=== PATIENT | male | born 1950 | race Caucasian/White ===

== ENCOUNTER 2016-09-30 08:49 | Emergency (ER) | payer BC, OTHER ==
[~2016-09-30] VITALS: Ht 180.3 cm; Wt 108.9 kg
[2016-09-30 08:55] VITALS: BP 153/88; PULSE 62; RESP 16; TEMP 98.2; O2SAT 99
--- NOTE | 2016-09-30 08:59 | NUR ---
AMBULATED TO BED 5
--- NOTE | 2016-09-30 09:00 | NUR ---
ER at bedside examining patient.
--- NOTE | 2016-09-30 09:05 | NUR ---
pt presents to ED c/o RLQ abd pain x 2 days w/diarrhea.Pt denies n/v.Pt h/o HTN. No acute distress noted.
[2016-09-30] MEDS ORDERED: KETOROLAC TROMETHAMINE 30 MG VIAL IVP ONE (09:15)
[2016-09-30] MEDS ORDERED: ONDANSETRON HCL 4 MG/2 ML VIAL IVP ONE (09:15)
--- NOTE | 2016-09-30 09:15 | NUR ---
# 20 gauge angiocath placed to rh. Use of asceptic technique. Opsite placed over site. Blood return noted. Blood for lab drawn from site. Flushed with 10 cc of normal saline. No evidence of infiltration noted. Patient tolerated well.
[2016-09-30 09:29] LABS: EOSINOPHILS # (AUTO) 0.3 K/uL (0.0-0.4); EOSINOPHILS % (AUTO) 1.6 % (0.0-4.0); WHITE BLOOD COUNT (AUTO) 15.7 K/uL (4.8-10.8)
[2016-09-30 09:37] LABS: CALCIUM 8.8 mg/dL (8.4-11.0); CREATININE 1.14 mg/dL (0.55-1.30); POTASSIUM 4.4 mmol/L (3.5-5.1)
[2016-09-30 09:39] LABS: BASOPHILS # (AUTO) 0.1 K/uL (0.0-0.2); BASOPHILS % (AUTO) 0.8 % (0.0-2.0); HEMATOCRIT 48.5 % (36-54); HEMOGLOBIN 16.1 g/dL (14.0-18.0); LYMPHOCYTES # (AUTO) 1.5 K/uL (1.0-5.5); LYMPHOCYTES % (AUTO) 9.4 % (20.5-51.5); MEAN CORPUSCULAR HEMOGLOBIN 29 pg (27-31); MEAN CORPUSCULAR HGB CONC 33 % (32-36); MEAN CORPUSCULAR VOLUME 87 fL (79.0-98.0); MONOCYTES # (AUTO) 1.4 K/uL (0.0-1.0); MONOCYTES % (AUTO) 9.1 % (1.7-9.3); NEUTROPHILS # (AUTO) 12.4 K/uL (1.8-7.7); NEUTROPHILS % (AUTO) 79.1 % (40.0-70.0); PLATELET COUNT (AUTO) 175 K/uL (130-430); RED BLOOD CELL COUNT(AUTO) 5.56 MIL/uL (4.2-6.2); RED CELL DISTRIBUTION WIDTH 12.4 % (9.0-15.0)
[2016-09-30 09:40] LABS: INR 1.1 (0.80-1.20); PROTHROMBIN TIME 12.2 SECS (9.5-12.5)
[2016-09-30 09:41] LABS: TOTAL BILIRUBIN 2.9 mg/dL (0.0-1.0); TOTAL PROTEIN, SERUM 7.2 g/dL (6.4-8.3)
[2016-09-30] MEDS ORDERED: NACL 0.9% 1,000 ML IV ONE (09:45)
--- NOTE | 2016-09-30 09:50 | NUR ---
Pt tolerated medication well.
[2016-09-30] MEDS ORDERED: CIPROFLOXACIN LACT 400 MG/D5W 200 ML IV ONE (10:00)
[2016-09-30] MEDS ORDERED: cefTRIAXone 1 GM IVPB PREMIX 50 ML IV ONE (10:00)
[2016-09-30] MEDS ORDERED: metroNIDAZOLE 500 mg/NS 100 ML IV ONE ×3 (10:00→10:15)
--- NOTE | 2016-09-30 10:45 | NUR ---
2nd iv established for med administration prior to pt d/c. 20G LH. Pt tolerated well.
--- NOTE | 2016-09-30 11:10 | NUR ---
All meds started. Continuing to monitor.
[2016-09-30 12:10] VITALS: BP 148/82; PULSE 65; RESP 16; TEMP 98; O2SAT 99
--- NOTE | 2016-09-30 12:12 | NUR ---
Patient given written and verbal discharge instructions and verbalizes understanding. ER MD discussed with patient the results and treatment provided. Given copies of tests performed in ER. Patient in stable condition. ID arm band removed. IV catheter removed intact and dressing applied, no active bleeding. Rx of Cipro,Flagyl,motrin given. Patient educated on pain management and to follow up with PMD. Pain Scale 0. Opportunity for questions provided and answered.
== END 2016-09-30 12:10 | disposition home or self-care (01) ==
LOC: SED 08:49
DX: K57.32 Diverticulitis of large intestine without perforation or abscess without bleeding (principal); I10 Essential (primary) hypertension; Z88.0 Allergy status to penicillin
CPT/HCPCS: 36415; 74176; 80053; 82150; 83605; 83690; 85025; 85610; 85730; 87040; 96361; 96365; 96367; 96368; 96375; 99285; J0696; J0744; J1885; J2405; J3490; J7030

== ENCOUNTER 2021-05-27 10:55 | Observation (INO) | payer BC, OTHER ==
[~2021-05-27] VITALS: Ht 180.3 cm; Wt 108.0 kg
[2021-05-27 11:00] VITALS: BP_SYST 119
--- NOTE | 2021-05-27 11:00 | NUR ---
Patient to ER bed 2 to gown for evaluation. Side rails up. Report given to BILL
--- NOTE | 2021-05-27 11:20 | NUR ---
DR RING IN TO ASSESS
[2021-05-27] MEDS ORDERED: ASPIRIN 81 MG TAB.CHEW PO ONE (11:30)
[2021-05-27] MEDS ORDERED: NITROGLYCERIN 1 INCH (GM) OINT. TP ONE (11:45)
[2021-05-27] MEDS ORDERED: ACETAMINOPHEN 650 MG SUPP.RECT RC ONE (11:45)
[2021-05-27 11:49] LABS: BASOPHILS # (AUTO) 0.1 K/uL (0.0-0.2); BASOPHILS % (AUTO) 0.7 % (0.0-2.0); EOSINOPHILS # (AUTO) 0.3 K/uL (0.0-0.4); EOSINOPHILS % (AUTO) 3.9 % (0.0-4.0); HEMATOCRIT 41.2 % (36-54); HEMOGLOBIN 14.4 g/dL (14.0-18.0); LYMPHOCYTES # (AUTO) 1.2 K/uL (1.0-5.5); MEAN CORPUSCULAR HEMOGLOBIN 31 pg (27-31); MEAN CORPUSCULAR HGB CONC 35 % (32-36); MEAN CORPUSCULAR VOLUME 87 fL (79.0-98.0); MONOCYTES # (AUTO) 1.1 K/uL (0.0-1.0); MONOCYTES % (AUTO) 13.4 % (1.7-9.3); NEUTROPHILS # (AUTO) 5.3 K/uL (1.8-7.7); PLATELET COUNT (AUTO) 206 K/uL (130-430); RED BLOOD CELL COUNT(AUTO) 4.71 MIL/uL (4.2-6.2); RED CELL DISTRIBUTION WIDTH 14.4 % (9.0-15.0); WHITE BLOOD COUNT (AUTO) 7.9 K/uL (4.8-10.8)
[2021-05-27 12:05] LABS: CALCIUM 8.9 mg/dL (8.4-11.0); CREATININE 1.11 mg/dL (0.55-1.30); POTASSIUM 3.7 mmol/L (3.5-5.1)
[2021-05-27 12:08] LABS: INR 1.3 (0.80-1.20); PROTHROMBIN TIME 13.7 SECS (9.5-12.5)
[2021-05-27] MEDS ORDERED: ACETAMINOPHEN 650 MG/20.3 ML UDC PO ONE (12:15)
[2021-05-27 12:21] LABS: ALBUMIN 3.7 g/dL (3.4-4.8)
--- NOTE | 2021-05-27 12:30 | NUR ---
CALM, ALERT, SB ON MONITOR, RESP UNLABORED, SKIN WARM AND DRY. COMMUNICATES CLEARLY IN FULL COMPLETE SENTENCES
--- NOTE | 2021-05-27 13:41 | NUR ---
Dr. Rogel at bedside to assess.
[2021-05-27] MEDS ORDERED: ACETAMINOPHEN 325 MG TABLET PO PRN (13:45)
[2021-05-27] MEDS ORDERED: LORazepam 2 MG/ML VIAL IVP PRN (13:45)
[2021-05-27] MEDS ORDERED: HYDROcodone/ACETAMIN 5-325 MG TAB (NORCO/ VICODIN) PO PRN (13:45)
[2021-05-27] MEDS ORDERED: ONDANSETRON HCL 4 MG/2 ML VIAL IVP PRN (13:45)
[2021-05-27] MEDS ORDERED: HYDROcodone/ACETAMIN 10-325 MG TAB PO PRN (13:45)
[2021-05-27] MEDS: NORMAL SALINE 5 ML DISP.SYRIN IVF SCH ×2 (14:00→21:43)
--- NOTE | 2021-05-27 15:00 | NUR ---
SITTING UP TALKING WITH , NO DISTRESS, SB ON MONITOR NO ECTOPY, SKIN WARM AND DRY.
[2021-05-27 15:31] LABS: THYROID STIMULATING HORMONE 1.38 uIu/mL (0.36-3.74)
--- NOTE | 2021-05-27 16:52 | NUR ---
Patient will be admitted to care of [facility]. Admitted to TELE unit. Will go to room 103. Belongings list completed. Complete and up to date summary report printed. SBAR report to be given at bedside with opportunity for questions.
--- NOTE | 2021-05-27 17:15 | NUR ---
ADMISSION NOTE Received patient from ER via gurney. Patient admitted with diagnosis of ELEVATED TROPONIN. Patient is awake, alert, oriented X . Patient oriented to hospital room, call light, toileting, pain management and safety-teach back done. Patient informed that will be nurse and that their room number is . Personal belongings checked and Belongings List documented. Call light within reach.
--- NOTE | 2021-05-27 17:16 | NUR ---
CONSULTATION PAGED REASON FOR CONSULTATION ELEVATED TROPONIN WAS CONSULT CALED?Y PERSON WHO WAS NOTIFIED:MARISELA CONSULTING PHYSICIAN:FELIX GOODRICH PRINCIPAL STRATEGIST SPECIALTY:CARDIO PRINCIPAL STRATEGIST PHONE NUMBER:[phone] REQUESTING PHYSICIAN:SHELTON COLE
[2021-05-27 18:00] VITALS: BP_SYST 140
[2021-05-27] MEDS ORDERED: CARV6.2554 PO (18:03)
[2021-05-27] MEDS ORDERED: HYDR25TA4 PO (18:03)
[2021-05-27] MEDS ORDERED: RIVA20TA PO (18:03)
[2021-05-27] MEDS ORDERED: LOSA100T23 PO (18:03)
[2021-05-27] MEDS ORDERED: ROSU10TA2 PO (18:03)
--- NOTE | 2021-05-27 18:20 | NUR ---
CLOSING NOTES: PATIENT IS AWAKE LAYING DOWN IN BED. TOLERATED OXYGEN ON ROOM AIR WITH NO DISTRESS NOTED. IV LINE PATENT AND INTACT WITH NO INFILTRATION NOTED. PATIENT STABLE AT THIS TIME. SAFETY, FALL, AND ASPIRATION PRECAUTIONS REMAINED IN PLACED. BED LOCKED IN LOWEST POSITION AND CALL LIGHT IN REACH. WILL ENDORSE PATIENT CARE TO ONCOMING PLASTICS AND COMPOSITES INSPECTOR NURSE.
[2021-05-27 20:01] VITALS: BP_SYST 128
[2021-05-27] MEDS ORDERED: traZODone HCL 50 MG TABLET (DESYREL) PO PRN (22:30)
[2021-05-27 23:24] VITALS: BP_SYST 145
--- NOTE | 2021-05-28 00:05 | NUR ---
Paged Dr Malloy frame builder for elevated troponin, patient denies any chest pain , telemetry NSR
[2021-05-28 06:19] LABS: EOSINOPHILS # (AUTO) 0.3 K/uL (0.0-0.4); MEAN CORPUSCULAR HEMOGLOBIN 31 pg (27-31); MEAN CORPUSCULAR HGB CONC 35 % (32-36); MEAN CORPUSCULAR VOLUME 87 fL (79.0-98.0); MONOCYTES # (AUTO) 0.9 K/uL (0.0-1.0)
[2021-05-28] MEDS: NORMAL SALINE 5 ML DISP.SYRIN IVF SCH (06:31)
--- NOTE | 2021-05-28 07:35 | NUR ---
OPENING NOTES: RECEIVED PATIENT FROM ADVERTISING DISPATCH CLERKS SUPERVISOR NURSE. PATIENT IS AWAKE LAYING DOWN IN BED. TOLERATED OXYGEN ON ROOM AIR WITH NO DISTRESS NOTED. IV LINE PATENT AND INTACT WITH NO INFILTRATION NOTED. DENIES ANY PAIN AT THE MOMENT. PATIENT STABLE AT THIS TIME. SAFETY, FALL, AND ASPIRATION PRECAUTIONS ARE IN PLACE. BED LOCKED IN LOWEST POSITION AND CALL LIGHT IN REACH. WILL CONTINUE TO MONITOR PATIENT FOR ANY CHANGES.
[2021-05-28 08:00] VITALS: BP_SYST 159
[2021-05-28 08:19] LABS: BASOPHILS % (AUTO) 0.4 % (0.0-2.0); EOSINOPHILS % (AUTO) 3.1 % (0.0-4.0); HEMOGLOBIN 13.7 g/dL (14.0-18.0); LYMPHOCYTES % (AUTO) 9.8 % (20.5-51.5); MONOCYTES % (AUTO) 9.5 % (1.7-9.3); NEUTROPHILS # (AUTO) 7.5 K/uL (1.8-7.7); NEUTROPHILS % (AUTO) 77.2 % (40.0-70.0); PLATELET COUNT (AUTO) 182 K/uL (130-430); RED BLOOD CELL COUNT(AUTO) 4.49 MIL/uL (4.2-6.2); RED CELL DISTRIBUTION WIDTH 14.5 % (9.0-15.0); WHITE BLOOD COUNT (AUTO) 9.7 K/uL (4.8-10.8)
[2021-05-28 08:48] LABS: ALBUMIN 3.9 g/dL (3.4-4.8); CALCIUM 9.1 mg/dL (8.4-11.0); CREATININE 0.99 mg/dL (0.55-1.30); PHOSPHORUS 2.6 mg/dL (2.7-4.5); POTASSIUM 3.7 mmol/L (3.5-5.1); TOTAL BILIRUBIN 1.4 mg/dL (0.0-1.0)
[2021-05-28] MEDS ORDERED: LOSARTAN POTASSIUM 50 MG TABLET (COZAAR) PO SCH (09:00)
[2021-05-28] MEDS ORDERED: RIVAROXABAN 10 MG TABLET PO SCH (09:00)
[2021-05-28] MEDS ORDERED: HYDROCHLOROTHIAZIDE 25 MG TABLET (HCTZ) PO SCH (09:00)
[2021-05-28] MEDS ORDERED: CARVEDILOL 6.25 MG TABLET (COREG) PO SCH (09:00)
[2021-05-28] MEDS ORDERED: LIP20 PO (09:29)
--- NOTE | 2021-05-28 10:28 | NUR ---
PATIENT IS CLEARED BY SUPERVISOR MODERN LANGUAGES AND OKAYED TO GO HOME.
[2021-05-28 12:00] VITALS: BP_SYST 141
[2021-05-28 12:37] VITALS: BP_SYST 141
--- NOTE | 2021-05-28 13:10 | NUR ---
IV ADMINISTRATION END TIME (Observation Patients ONLY): IV infusion of started at and ended at . PATIENT HAS NO IV FLUIDS INFUSED DURING STAY.
--- NOTE | 2021-05-28 13:27 | NUR ---
D/C Patient Patient given medication reconciliation form and D/C instructions. Exit Care provided. Patient verbalized understanding. MD discussed with patient the results and treatment provided. Ambulatory with steady gait for discharge to home. Patient in stable condition, ID band removed. IV catheter removed, intact and dressing applied, no active bleeding. Rx of ATORVASTATIN given. Patient educated on pain management. All belongings sent with patient.
[2021-05-28] MEDS ORDERED: ATORVASTATIN 20 MG TABLET PO SCH (21:00)
--- NOTE | 2021-05-29 10:06 | NUR ---
Disposition o1
== END 2021-05-28 13:10 | disposition home or self-care (01) ==
LOC: SED 10:55 → STU 13:39
PROVIDERS: ADMIT Preventive Medicine Preventive Medicine/Occupational Environmental Medicine; ATTEND Preventive Medicine Preventive Medicine/Occupational Environmental Medicine
DX: I48.0 Paroxysmal atrial fibrillation (principal); I48.20 Chronic atrial fibrillation, unspecified; I10 Essential (primary) hypertension; I5A Non-ischemic myocardial injury (non-traumatic); E78.5 Hyperlipidemia, unspecified; E66.9 Obesity, unspecified; Z68.33 Body mass index [BMI] 33.0-33.9, adult; Z87.891 Personal history of nicotine dependence; Z88.0 Allergy status to penicillin; Z79.899 Other long term (current) drug therapy
CPT/HCPCS: 36415 ×2; 71045; 80053 ×2; 80061; 83735; 83880; 84100; 84443; 84484; 85025 ×2; 85610; 85730; 87040; 93005 ×2; 93306; 99285; G0378 ×2; 99291

== ENCOUNTER 2023-01-07 09:34 | Inpatient (IN) | payer BC, OTHER ==
[~2023-01-07] VITALS: Ht 177.8 cm; Wt 88.5 kg
[~2023-01-07 09:34] MED LIST: CARV6.2554 PO; HYDR25TA4 PO; LIP20 PO; LOSA100T23 PO; RIVA20TA PO
[2023-01-07 09:35] VITALS: BP_SYST 118
[2023-01-07 10:54] LABS: BASOPHILS # (AUTO) 0.1 K/uL (0.0-0.2); BASOPHILS % (AUTO) 0.8 % (0.0-2.0); EOSINOPHILS # (AUTO) 0.3 K/uL (0.0-0.4); EOSINOPHILS % (AUTO) 4.9 % (0.0-4.0); HEMATOCRIT 42.6 % (36-54); HEMOGLOBIN 14.7 g/dL (14.0-18.0); LYMPHOCYTES # (AUTO) 0.9 K/uL (1.0-5.5); LYMPHOCYTES % (AUTO) 14.6 % (20.5-51.5); MEAN CORPUSCULAR HEMOGLOBIN 30 pg (27-31); MEAN CORPUSCULAR HGB CONC 35 % (32-36); MEAN CORPUSCULAR VOLUME 88 fL (79.0-98.0); MONOCYTES # (AUTO) 0.8 K/uL (0.0-1.0); MONOCYTES % (AUTO) 13.3 % (1.7-9.3); NEUTROPHILS # (AUTO) 4.2 K/uL (1.8-7.7); NEUTROPHILS % (AUTO) 66.4 % (40.0-70.0); PLATELET COUNT (AUTO) 189 K/uL (130-430); RED BLOOD CELL COUNT(AUTO) 4.87 MIL/uL (4.2-6.2); RED CELL DISTRIBUTION WIDTH 12.9 % (9.0-15.0); WHITE BLOOD COUNT (AUTO) 6.3 K/uL (4.8-10.8)
[2023-01-07 11:14] LABS: ANION GAP 6 (5-15); CALCIUM 9.1 mg/dL (8.4-11.0); CHLORIDE 104 mmol/L (98-107); CREATININE 0.88 mg/dL (0.55-1.30); GLUCOSE 111 mg/dL (70-99); UREA NITROGEN, BLOOD 28 mg/dL (8-21)
[2023-01-07 11:19] LABS: ALANINE AMINOTRANSFERASE 12 U/L (12-78); ALBUMIN 3.8 g/dL (3.4-4.8); ASPARTATE AMINOTRANSFERASE 20 U/L (10-37); TOTAL BILIRUBIN 0.9 mg/dL (0.0-1.0)
[2023-01-07] MEDS ORDERED: NACL 0.9% 1,000 ML IV ONE (11:30)
[2023-01-07] MEDS ORDERED: dilTIAZem HCL IVP 5 MG/ML VIAL IVP ONE ×2 (12:15→13:15)
[2023-01-07] MEDS ORDERED: HYDROcodone/ACETAMIN 10-325 MG TAB PO PRN (14:15)
[2023-01-07] MEDS ORDERED: MORPHINE 2 MG/ML INJ. SYRINGE IVP PRN (14:15)
[2023-01-07] MEDS ORDERED: ONDANSETRON HCL 4 MG/2 ML VIAL IVP PRN (14:15)
[2023-01-07] MEDS ORDERED: DIGOXIN 0.5 MG/2 ML AMP IVP ONE ×2 (14:30→20:30)
[2023-01-07] MEDS ORDERED: ROSU10TA2 PO (14:30)
[2023-01-07] MEDS ORDERED: AMLO2.5T2 PO (14:30)
[2023-01-07] MEDS ORDERED: NITROGLYCERIN 0.4 MG TAB.SUBL SL PRN ×2 (15:00)
[2023-01-07 15:12] VITALS: BP_SYST 101
[2023-01-07 16:00] VITALS: BP_SYST 134
[2023-01-07 16:51] LABS: THYROID STIMULATING HORMONE < 0.01 uIu/mL (0.34-4.82)
[2023-01-07 19:00] VITALS: BP_SYST 115
[2023-01-07 20:00] VITALS: BP_SYST 115
[2023-01-08] MEDS ORDERED: DIGOXIN 0.5 MG/2 ML AMP IVP ONE (02:30)
[2023-01-08 07:10] LABS: INR 1.1 (0.80-1.20); PROTHROMBIN TIME 11.5 SECS (9.5-12.5)
[2023-01-08 07:11] LABS: BASOPHILS % (AUTO) 0.5 % (0.0-2.0); EOSINOPHILS # (AUTO) 0.2 K/uL (0.0-0.4); EOSINOPHILS % (AUTO) 2.8 % (0.0-4.0); HEMATOCRIT 43.8 % (36-54); HEMOGLOBIN 15.2 g/dL (14.0-18.0); LYMPHOCYTES # (AUTO) 1.4 K/uL (1.0-5.5); LYMPHOCYTES % (AUTO) 17.3 % (20.5-51.5); MEAN CORPUSCULAR HEMOGLOBIN 30 pg (27-31); MEAN CORPUSCULAR HGB CONC 35 % (32-36); MEAN CORPUSCULAR VOLUME 88 fL (79.0-98.0); MONOCYTES % (AUTO) 11.9 % (1.7-9.3); NEUTROPHILS # (AUTO) 5.4 K/uL (1.8-7.7); NEUTROPHILS % (AUTO) 67.5 % (40.0-70.0); PLATELET COUNT (AUTO) 185 K/uL (130-430); RED BLOOD CELL COUNT(AUTO) 4.99 MIL/uL (4.2-6.2); RED CELL DISTRIBUTION WIDTH 13.2 % (9.0-15.0)
[2023-01-08 07:34] LABS: ANION GAP 10 (5-15); CALCIUM 9.3 mg/dL (8.4-11.0); CHLORIDE 106 mmol/L (98-107); CREATININE 0.83 mg/dL (0.55-1.30); GLUCOSE 109 mg/dL (70-99); UREA NITROGEN, BLOOD 23 mg/dL (8-21)
[2023-01-08 08:00] VITALS: BP_SYST 109
[2023-01-08] MEDS ORDERED: METOPROLOL SUCCINATE 25 MG TAB.SR.24H (TOPROL XL) PO ONE (09:23)
[2023-01-08] MEDS ORDERED: METOPROLOL SUCCINATE 25 MG TAB.SR.24H (TOPROL XL) PO SCH (09:30)
[2023-01-08] MEDS ORDERED: LOSARTAN POTASSIUM 50 MG TABLET (COZAAR) PO ONE (10:15)
[2023-01-08] MEDS ORDERED: CARVEDILOL 6.25 MG TABLET (COREG) PO ONE (10:15)
[2023-01-08] MEDS ORDERED: RIVAROXABAN 10 MG TABLET PO ONE (10:45)
[2023-01-08 11:20] VITALS: BP_SYST 98
[2023-01-08] MEDS ORDERED: methIMAzole 5 MG TABLET PO ONE (13:15)
[2023-01-08 15:10] VITALS: BP_SYST 116
[2023-01-08 20:00] VITALS: BP_SYST 117
[2023-01-08] MEDS ORDERED: MELATONIN 5 MG TABLET PO PRN (20:30)
[2023-01-08] MEDS: CARVEDILOL 6.25 MG TABLET (COREG) PO SCH (20:39)
[2023-01-08] MEDS: RIVAROXABAN 10 MG TABLET PO SCH (20:42)
[2023-01-08] MEDS ORDERED: ATORVASTATIN 20 MG TABLET PO SCH (21:00)
[2023-01-09 00:04] VITALS: BP_SYST 120
[2023-01-09 07:12] LABS: ANION GAP 9 (5-15); CALCIUM 9.2 mg/dL (8.4-11.0); CHLORIDE 105 mmol/L (98-107); GLUCOSE 104 mg/dL (70-99); UREA NITROGEN, BLOOD 25 mg/dL (8-21)
[2023-01-09 07:25] LABS: BASOPHILS # (AUTO) 0.1 K/uL (0.0-0.2); BASOPHILS % (AUTO) 0.6 % (0.0-2.0); EOSINOPHILS # (AUTO) 0.4 K/uL (0.0-0.4); EOSINOPHILS % (AUTO) 4.1 % (0.0-4.0); HEMATOCRIT 44.7 % (36-54); HEMOGLOBIN 15.4 g/dL (14.0-18.0); LYMPHOCYTES # (AUTO) 1.6 K/uL (1.0-5.5); LYMPHOCYTES % (AUTO) 18.4 % (20.5-51.5); MEAN CORPUSCULAR HEMOGLOBIN 30 pg (27-31); MEAN CORPUSCULAR HGB CONC 34 % (32-36); MEAN CORPUSCULAR VOLUME 88 fL (79.0-98.0); MONOCYTES # (AUTO) 1.1 K/uL (0.0-1.0); MONOCYTES % (AUTO) 12.9 % (1.7-9.3); NEUTROPHILS # (AUTO) 5.6 K/uL (1.8-7.7); PLATELET COUNT (AUTO) 200 K/uL (130-430); RED BLOOD CELL COUNT(AUTO) 5.06 MIL/uL (4.2-6.2); RED CELL DISTRIBUTION WIDTH 13.1 % (9.0-15.0); WHITE BLOOD COUNT (AUTO) 8.8 K/uL (4.8-10.8)
[2023-01-09 08:00] VITALS: BP_SYST 135
[2023-01-09 08:47] LABS: INR 1.5 (0.80-1.20); PROTHROMBIN TIME 15.7 SECS (9.5-12.5)
[2023-01-09] MEDS: RIVAROXABAN 10 MG TABLET PO SCH (08:51)
[2023-01-09] MEDS: CARVEDILOL 6.25 MG TABLET (COREG) PO SCH (08:51)
[2023-01-09] MEDS ORDERED: LOSARTAN POTASSIUM 50 MG TABLET (COZAAR) PO SCH (09:00)
[2023-01-09] MEDS ORDERED: methIMAzole 5 MG TABLET PO SCH (09:00)
[2023-01-09] MEDS ORDERED: LIDOCAINE PATCH 5% 1 EA TP ONE (11:00)
[2023-01-09 11:35] VITALS: BP_SYST 99
[2023-01-09] MEDS ORDERED: METH-373 PO (14:28)
[2023-01-09 15:09] VITALS: BP_SYST 109
[2023-01-09 15:27] VITALS: BP_SYST 112
[2023-01-10] MEDS ORDERED: LIDOCAINE PATCH 5% 1 EA TP SCH (09:00)
== END 2023-01-09 16:00 | disposition home or self-care (01) | DRG 309 ==
LOC: SED 09:34 → STU 14:20
PROVIDERS: ADMIT Family Medicine; ATTEND Family Medicine
DX: I48.20 Chronic atrial fibrillation, unspecified (principal); R65.10 Systemic inflammatory response syndrome (SIRS) of non-infectious origin without acute organ dysfunction; E05.90 Thyrotoxicosis, unspecified without thyrotoxic crisis or storm; I10 Essential (primary) hypertension; Z88.0 Allergy status to penicillin; Z79.899 Other long term (current) drug therapy; Z79.01 Long term (current) use of anticoagulants
CPT/HCPCS: 36415; 71045; 76536-TC; 80048; 80053; 83735; 83880; 84439; 84443; 84484; 85025; 85610-TC; 85730-TC; 86376; 93005; 93306; 99285; G0378; J1160; J3490

== ENCOUNTER 2023-01-12 11:12 | Inpatient (IN) | payer OTHER ==
[~2023-01-12] VITALS: Ht 177.8 cm; Wt 88.5 kg
[2023-01-12 11:12] VITALS: BP_SYST 157
[~2023-01-12 11:12] MED LIST changes: -HYDR25TA4 PO; -LOSA100T23 PO; +METH-373 PO
--- NOTE | 2023-01-12 11:12 | NUR ---
BROUGHT BACK TO BED #3 AND TRIAGED. REPORT GIVEN TO LEAH
--- NOTE | 2023-01-12 11:14 | NUR ---
DR MILLER IN ROOM FOR EXAM
[2023-01-12 11:41] LABS: BASOPHILS % (AUTO) 0.7 % (0.0-2.0); EOSINOPHILS # (AUTO) 0.2 K/uL (0.0-0.4); EOSINOPHILS % (AUTO) 3.1 % (0.0-4.0); HEMATOCRIT 41.8 % (36-54); HEMOGLOBIN 14.4 g/dL (14.0-18.0); LYMPHOCYTES # (AUTO) 1.2 K/uL (1.0-5.5); LYMPHOCYTES % (AUTO) 18.8 % (20.5-51.5); MEAN CORPUSCULAR HEMOGLOBIN 30 pg (27-31); MEAN CORPUSCULAR HGB CONC 35 % (32-36); MEAN CORPUSCULAR VOLUME 87 fL (79.0-98.0); MONOCYTES # (AUTO) 0.8 K/uL (0.0-1.0); MONOCYTES % (AUTO) 13.2 % (1.7-9.3); NEUTROPHILS # (AUTO) 4.1 K/uL (1.8-7.7); NEUTROPHILS % (AUTO) 64.2 % (40.0-70.0); PLATELET COUNT (AUTO) 191 K/uL (130-430); RED BLOOD CELL COUNT(AUTO) 4.78 MIL/uL (4.2-6.2); RED CELL DISTRIBUTION WIDTH 13.3 % (9.0-15.0); WHITE BLOOD COUNT (AUTO) 6.4 K/uL (4.8-10.8)
--- NOTE | 2023-01-12 11:44 | NUR ---
Admit bed requested Patient will be admitted to care of . Admitted to TELE unit. Diagnosis AFIB Inpatient (Yes or No) Y Observation (Yes or No) N Orientation concerns or request close to nursing station (Yes or No) N Covid Status NA On vent or bipap N Isolation requirements N Needs a sitter N From Home (Yes or if No enter name of facility) Y Requires Dialysis (Yes or No) N Med Rec Completed (Yes of No) Y
[2023-01-12 11:55] LABS: ANION GAP 8 (5-15); CALCIUM 8.8 mg/dL (8.4-11.0); CHLORIDE 106 mmol/L (98-107); CREATININE 0.92 mg/dL (0.55-1.30); GLUCOSE 109 mg/dL (70-99); UREA NITROGEN, BLOOD 23 mg/dL (8-21)
[2023-01-12] MEDS ORDERED: TOP25 PO (11:59)
[2023-01-12] MEDS ORDERED: APIX5TAB4 PO (11:59)
[2023-01-12 12:16] LABS: ALANINE AMINOTRANSFERASE 27 U/L (12-78); ALBUMIN 3.6 g/dL (3.4-4.8); ASPARTATE AMINOTRANSFERASE 12 U/L (10-37); TOTAL BILIRUBIN 1.1 mg/dL (0.0-1.0)
--- NOTE | 2023-01-12 12:23 | NUR ---
CRITICAL TROPONIN LABS RECEIVED, AUSTIN MILLER INFORMED. ASA GIVEN ORDERED.
[2023-01-12] MEDS ORDERED: ASPIRIN 325 MG TABLET PO ONE (12:30)
[2023-01-12] MEDS ORDERED: methIMAzole 5 MG TABLET PO SCH (12:45)
[2023-01-12 12:47] LABS: THYROID STIMULATING HORMONE < 0.01 uIu/mL (0.34-4.82)
[2023-01-12] MEDS ORDERED: CARVEDILOL 6.25 MG TABLET (COREG) PO ONE (13:00)
[2023-01-12] MEDS ORDERED: TOPIRAMATE 25 MG TABLET(TOPAMAX) PO ONE (13:00)
--- NOTE | 2023-01-12 13:09 | NUR ---
NO ACUTE CHANGES IN CONDITION, PT DENIES ANY CP OR SOB. VSS.
[2023-01-12] MEDS ORDERED: methIMAzole 5 MG TABLET PO ONE (13:15)
--- NOTE | 2023-01-12 14:00 | NUR ---
OPENING NOTES PATIENT WAS TRANSFER FROM ER. PATIENT IS AWAKE, ALERT AND ORIENTED. BREATHING UNLABORED ON RA SA02 98%. TELE BOX PLACED ON PATIENT. IV IS PATENT AND SALINE LOCKED. SKIN IS INTACT. PATIENT IS AMBULATORY AND HIS GAIT IS STEADY. NO S/S OF DISTRESS OR PAIN REPORTED. PATIENT EDUCATED ON USE OF CALL LIGHT. VERBALIZE UNDERSTANDING. ALL NEED MET AT THIS TIME. SAFETY CHECK MADE. CALL LIGHT WITHIN REACH. BED LOCKED IN LOWEST POSITION. WILL CONTINUE WITH PLAN OF CARE.
[2023-01-12 14:01] VITALS: BP_SYST 139
--- NOTE | 2023-01-12 14:11 | NUR ---
APatient will be admitted to care of DR HERNÁNDEZ. Admitted to TELE unit. Will go to room 120A. Belongings list completed. Complete and up to date summary report printed. SBAR report to be given at bedside with opportunity for questions.
[2023-01-12] MEDS: TOPIRAMATE 25 MG TABLET(TOPAMAX) PO SCH ×3 (14:40→21:34)
--- NOTE | 2023-01-12 18:46 | NUR ---
CLOSING NOTES PATIENT RESTING, BREATHING UNLABORED ON RA. NO S/S OF PAIN, DISTRESS, SOB REPORTED. ALL NEED MET AT THIS TIME. SAFETY PRECAUTION IN PLACE. BED ALARM WITHIN REACH. BED LOCKED IN LOWEST POSITION. WILL ENDORSE TO NEXT SHIFT NURSE.
[2023-01-12 20:00] VITALS: BP_SYST 115
[2023-01-12] MEDS: CARVEDILOL 6.25 MG TABLET (COREG) PO SCH (21:34)
[2023-01-13] VITALS: BP_SYST 110
--- NOTE | 2023-01-13 07:00 | NUR ---
Patient is alert, oriented, no complaints of pain or discomfort, he is checked frequently. When patient is up out of bed, his heart rate is increased, he is asymptomatic. Vitals are stable, he denies chest pain and discomfort.
--- NOTE | 2023-01-13 07:59 | NUR ---
OPENING NOTES: PATIENT IN BED EATING BREAKFAST AND WATCHING TV. NO S/S OF DISTRESS OR PAIN REPORTED. BREATHING IS EVEN AND UNLABORED ON RA 97%. EDUCATED PATIENT ON USE OF CALL LIGHT. PATIENT VERBALIZED UNDERSTANDING. ALL NEEDS MET AT THIS TIME, SAFETY CHECKS MADE AND CALL LIGHT WITHIN REACH.
[2023-01-13 08:00] VITALS: BP_SYST 136
--- NOTE | 2023-01-13 08:02 | NUR ---
DR HERNÁNDEZ N AT PATIENT AT BEDSIDE TALKING WITH PATIENT ABOUT PLAN OF CARE
[2023-01-13] MEDS: TOPIRAMATE 25 MG TABLET(TOPAMAX) PO SCH (08:55)
[2023-01-13] MEDS: CARVEDILOL 6.25 MG TABLET (COREG) PO SCH (08:56)
[2023-01-13] MEDS ORDERED: TOPIRAMATE 25 MG TABLET(TOPAMAX) PO SCH (09:00)
[2023-01-13] MEDS ORDERED: methIMAzole 5 MG TABLET PO SCH (09:00)
[2023-01-13] MEDS ORDERED: APIXABAN 2.5 MG TABLET PO ONE (10:30)
[2023-01-13 10:36] LABS: BASOPHILS % (AUTO) 0.7 % (0.0-2.0); EOSINOPHILS # (AUTO) 0.2 K/uL (0.0-0.4); EOSINOPHILS % (AUTO) 3.6 % (0.0-4.0); HEMATOCRIT 41.1 % (36-54); LYMPHOCYTES % (AUTO) 18.8 % (20.5-51.5); MEAN CORPUSCULAR HEMOGLOBIN 30 pg (27-31); MEAN CORPUSCULAR HGB CONC 34 % (32-36); MEAN CORPUSCULAR VOLUME 87 fL (79.0-98.0); MONOCYTES # (AUTO) 0.6 K/uL (0.0-1.0); MONOCYTES % (AUTO) 10.9 % (1.7-9.3); NEUTROPHILS # (AUTO) 3.6 K/uL (1.8-7.7); PLATELET COUNT (AUTO) 175 K/uL (130-430); RED BLOOD CELL COUNT(AUTO) 4.71 MIL/uL (4.2-6.2); RED CELL DISTRIBUTION WIDTH 13.5 % (9.0-15.0); WHITE BLOOD COUNT (AUTO) 5.4 K/uL (4.8-10.8)
[2023-01-13] MEDS ORDERED: LOSARTAN POTASSIUM 50 MG TABLET (COZAAR) PO ONE (10:45)
[2023-01-13 10:54] LABS: ALANINE AMINOTRANSFERASE 29 U/L (12-78); ALBUMIN 3.5 g/dL (3.4-4.8); ANION GAP 5 (5-15); ASPARTATE AMINOTRANSFERASE 20 U/L (10-37); CALCIUM 9.1 mg/dL (8.4-11.0); CHLORIDE 108 mmol/L (98-107); CREATININE 0.91 mg/dL (0.55-1.30); GLUCOSE 103 mg/dL (70-99); THYROID STIMULATING HORMONE < 0.01 uIu/mL (0.36-3.74); UREA NITROGEN, BLOOD 18 mg/dL (8-21)
--- NOTE | 2023-01-13 11:00 | NUR ---
CONSULTATION PAGED/CALLED Reason for Consultation: HYPERTHYROIDISM Person Who was Notified: COLE Consulting Physician: ALEENA WASHBURN Ordering Physician: KIESHA HERNÁNDEZ
[2023-01-13 12:10] VITALS: BP_SYST 115
[2023-01-13 13:53] VITALS: BP_SYST 113
[2023-01-13] MEDS ORDERED: APIXABAN 2.5 MG TABLET PO SCH (21:00)
[2023-01-14] MEDS ORDERED: LOSARTAN POTASSIUM 50 MG TABLET (COZAAR) PO SCH (09:00)
== END 2023-01-13 14:25 | disposition home or self-care (01) | DRG 310 ==
LOC: SED 11:12 → STU 11:38
PROVIDERS: ADMIT Student in an Organized Health Care Education/Training Program; ATTEND Student in an Organized Health Care Education/Training Program
DX: I48.20 Chronic atrial fibrillation, unspecified (principal); I10 Essential (primary) hypertension; E78.5 Hyperlipidemia, unspecified; Z88.0 Allergy status to penicillin; Z79.899 Other long term (current) drug therapy; Z79.01 Long term (current) use of anticoagulants; E05.90 Thyrotoxicosis, unspecified without thyrotoxic crisis or storm; M54.9 Dorsalgia, unspecified
CPT/HCPCS: 36415; 80053; 84443; 84484; 85025; 87081; 93005; 99285; G0378

== ENCOUNTER 2023-02-08 21:32 | Inpatient (IN) | payer OTHER ==
[~2023-02-08] VITALS: Ht 177.8 cm; Wt 88.5 kg
[~2023-02-08 21:32] MED LIST changes: +APIX5TAB4 PO; -LIP20 PO; -RIVA20TA PO; +TOP25 PO
[2023-02-08 22:39] VITALS: BP_SYST 133; PULSE 108; RESP 18; TEMP 98; O2SAT 97
--- NOTE | 2023-02-08 22:47 | NUR ---
PT WENT TO BED 2
--- NOTE | 2023-02-08 22:47 | NUR ---
Patient triaged and placed in waiting room. VSS and patient appears in no acute distress at this time. Accompanied by , awaiting available bed, and MD notified of need for MSE.
--- NOTE | 2023-02-08 22:47 | NUR ---
AT THE BEDSIDE
--- NOTE | 2023-02-08 23:15 | NUR ---
DR CHANG AT THE BEDSIDE
--- NOTE | 2023-02-08 23:23 | NUR ---
X RAY AT THE BEDSIDE
--- NOTE | 2023-02-08 23:31 | NUR ---
PT WENT TO CT
[2023-02-08 23:36] LABS: BASOPHILS # (AUTO) 0.1 K/uL (0.0-0.2); BASOPHILS % (AUTO) 0.8 % (0.0-2.0); EOSINOPHILS # (AUTO) 0.4 K/uL (0.0-0.4); EOSINOPHILS % (AUTO) 3.7 % (0.0-4.0); HEMOGLOBIN 14.6 g/dL (14.0-18.0); LYMPHOCYTES # (AUTO) 1.2 K/uL (1.0-5.5); LYMPHOCYTES % (AUTO) 11.7 % (20.5-51.5); MEAN CORPUSCULAR HEMOGLOBIN 28 pg (27-31); MEAN CORPUSCULAR HGB CONC 33 % (32-36); MEAN CORPUSCULAR VOLUME 86 fL (79.0-98.0); MONOCYTES # (AUTO) 0.9 K/uL (0.0-1.0); MONOCYTES % (AUTO) 9.2 % (1.7-9.3); NEUTROPHILS # (AUTO) 7.6 K/uL (1.8-7.7); NEUTROPHILS % (AUTO) 74.6 % (40.0-70.0); PLATELET COUNT (AUTO) 251 K/uL (130-430); RED BLOOD CELL COUNT(AUTO) 5.14 MIL/uL (4.2-6.2); RED CELL DISTRIBUTION WIDTH 13.8 % (9.0-15.0); WHITE BLOOD COUNT (AUTO) 10.2 K/uL (4.8-10.8)
[2023-02-08] MEDS ORDERED: DILTIAZEM HCL 60 MG TABLET PO ONE (23:45)
[2023-02-08] MEDS ORDERED: dilTIAZem HCL IVP 5 MG/ML VIAL IVP ONE (23:45)
[2023-02-08] MEDS ORDERED: DILT180C54 PO (23:54)
[2023-02-08] MEDS ORDERED: FURO-150 PO (23:54)
[2023-02-09] LABS: ALANINE AMINOTRANSFERASE 23 U/L (12-78); ALBUMIN 3.9 g/dL (3.4-4.8); ANION GAP 10 (5-15); ASPARTATE AMINOTRANSFERASE 22 U/L (10-37); CALCIUM 9.5 mg/dL (8.4-11.0); CHLORIDE 106 mmol/L (98-107); CREATININE 0.89 mg/dL (0.55-1.30); GLUCOSE 112 mg/dL (74-106); TOTAL BILIRUBIN 1.3 mg/dL (0.0-1.0); UREA NITROGEN, BLOOD 19 mg/dL (8-21)
[2023-02-09] MEDS ORDERED: METH-374 PO (00:01)
[2023-02-09 00:09] LABS: FREE T4 (FREE THYROXINE) 1.7 ng/dl (0.8-1.5); LIPASE 239 U/L (73-393); THYROID STIMULATING HORMONE < 0.01 uIu/mL (0.36-3.74)
[2023-02-09] MEDS ORDERED: METOPROLOL TARTRATE 5 MG/5 ML VIAL IVP ONE (00:30)
--- NOTE | 2023-02-09 01:27 | NUR ---
Admit bed requested Patient will be admitted to care of Dr.PALIWAL PEOPLES. Admitted to TELEMERTY unit. Diagnosis AFIB Inpatient (Yes or No) YES Observation (Yes or No) NO Orientation concerns or request close to nursing station (Yes or No) NO Covid Status On vent or bipap NO Isolation requirements NO Needs a sitter NO From Home (Yes or if No enter name of facility) YES Requires Dialysis (Yes or No) NO Med Rec Completed (Yes of No) YES
[2023-02-09] MEDS ORDERED: METOPROLOL TARTRATE 25 MG TABLET PO ONE (01:45)
--- NOTE | 2023-02-09 03:37 | NUR ---
PT WENT TO RESTROOM
--- NOTE | 2023-02-09 04:24 | NUR ---
PT RESTING, NO ACUTE DISTRESS NOTED. SIDE RAIL UP.
[2023-02-09] MEDS ORDERED: LORazepam 2 MG/ML VIAL IVP PRN (05:30)
[2023-02-09] MEDS ORDERED: HYDROcodone/ACETAMIN 10-325 MG TAB PO PRN (05:30)
[2023-02-09] MEDS ORDERED: NALOXONE HCL 0.4 MG/ML AMP (NARCAN) IVP PRN ×2 (05:30)
[2023-02-09] MEDS ORDERED: ONDANSETRON HCL 4 MG/2 ML VIAL IVP PRN (05:30)
[2023-02-09] MEDS ORDERED: HYDROcodone/ACETAMIN 5-325 MG TAB (NORCO/ VICODIN) PO PRN (05:30)
[2023-02-09] MEDS ORDERED: ACETAMINOPHEN 325 MG TABLET PO PRN ×2 (05:30→08:30)
--- NOTE | 2023-02-09 07:30 | NUR ---
ASSUMED CARE OF A&OX 4 PT WITH CLEAR SPEECH AND PATENT AIRWAY IN A-FIB ACTIVELY; RATE JUMPING BETWEEN 70-110; PT DENIES CP, SOB AND DIZZINESS AND IS PENDING A TELE BED PLACEMENT.
[2023-02-09 07:42] LABS: ANION GAP 10 (5-15); CALCIUM 8.9 mg/dL (8.4-11.0); CHLORIDE 107 mmol/L (98-107); CREATININE 0.79 mg/dL (0.55-1.30); GLUCOSE 109 mg/dL (74-106); UREA NITROGEN, BLOOD 17 mg/dL (8-21)
[2023-02-09 07:54] LABS: BASOPHILS # (AUTO) 0.1 K/uL (0.0-0.2); BASOPHILS % (AUTO) 0.7 % (0.0-2.0); EOSINOPHILS # (AUTO) 0.2 K/uL (0.0-0.4); EOSINOPHILS % (AUTO) 3.1 % (0.0-4.0); HEMATOCRIT 42.9 % (36-54); LYMPHOCYTES # (AUTO) 1.1 K/uL (1.0-5.5); MEAN CORPUSCULAR HEMOGLOBIN 28 pg (27-31); MEAN CORPUSCULAR HGB CONC 33 % (32-36); MEAN CORPUSCULAR VOLUME 86 fL (79.0-98.0); MONOCYTES # (AUTO) 0.8 K/uL (0.0-1.0); MONOCYTES % (AUTO) 10.8 % (1.7-9.3); NEUTROPHILS # (AUTO) 5.3 K/uL (1.8-7.7); NEUTROPHILS % (AUTO) 70.4 % (40.0-70.0); PLATELET COUNT (AUTO) 217 K/uL (130-430); RED BLOOD CELL COUNT(AUTO) 5.02 MIL/uL (4.2-6.2); WHITE BLOOD COUNT (AUTO) 7.5 K/uL (4.8-10.8)
--- NOTE | 2023-02-09 09:30 | NUR ---
PT TO BE TRANSPORTED TO [facility] WHO IS THE RN FOR ROOM 118A; [facility] WILL RECEIVE BEDSIDE REPORT AND PT TO BE TRANSPORTED VIA GUERNEY AND PORTABLE GLASS TOUGHENING OPERATOR.
[2023-02-09 09:35] VITALS: BP_SYST 124; PULSE 88; RESP 18; TEMP 97.6
--- NOTE | 2023-02-09 09:35 | NUR ---
ADMITTED PATIENT BROUGHT BY ER. ABLE AMBULATE TO BED.GAIT IS STABLE.PATIENT HAS NO COMPLAINTS AT THIS TIME.EDUCATED ART HISTORY INSTRUCTOR LIGHT FOR ASSISTANCE. CALL LIGHT IS WITH HIM. PATIENTS VITAL SIGNS ARE STABLE. NO OTHER NEEDS AT THIS TIME.
--- NOTE | 2023-02-09 09:38 | NUR ---
PT REMAINED STABLE AND WITHOUT CP OR SOB OR DIZZINESS DURING TRANSPORT. BEDSIDE REPORT GIVEN TO [facility]; ALL QUESTIONS ANSWERED. [facility]
--- NOTE | 2023-02-09 09:38 | NUR ---
CONSULTATION PAGED/CALLED Reason for Consultation: [] DIZZINESS Person Who was Notified: [] MATT Consulting Physician: [] DR Kam GARCIA Bond Runner Specialty: [] NEURO Ordering Physician: [] DR WRIGHT
--- NOTE | 2023-02-09 09:50 | NUR ---
TEXTED CARDIOLOGY CONSULT TO DR Milena WRIGHT, RE: AFIB.
[2023-02-09] MEDS: APIXABAN 2.5 MG TABLET PO SCH ×2 (10:42→22:08)
[2023-02-09] MEDS: FUROSEMIDE 20 MG TABLET PO SCH (10:43)
[2023-02-09] MEDS: TOPIRAMATE 25 MG TABLET(TOPAMAX) PO SCH (10:43)
[2023-02-09] MEDS: DILTIAZEM HCL 180 MG CAP.SR.24H PO SCH (10:43)
[2023-02-09] MEDS: CARVEDILOL 6.25 MG TABLET (COREG) PO SCH ×2 (10:44→22:07)
[2023-02-09] MEDS: methIMAzole 5 MG TABLET PO SCH (10:45)
[2023-02-09] MEDS: NORMAL SALINE 5 ML DISP.SYRIN IVF SCH ×3 (10:45→22:09)
--- NOTE | 2023-02-09 12:00 | NUR ---
rn rounding patient is awake and alert sitting up in bed. no complaints at this time. is at bedside. call light is with him educated to use call light for assistance. patient has no other needs at this time.
[2023-02-09 12:09] VITALS: BP_SYST 108; PULSE 69; RESP 16; TEMP 98.2; O2SAT 97
[2023-02-09 16:00] VITALS: BP_SYST 106; RESP 18; TEMP 97.1; O2SAT 96
--- NOTE | 2023-02-09 16:08 | NUR ---
PATIENT IS AWAKE AND ALERT SITTING UP IN BED. PATIENT HAS NO COMPLAINTS AT THIS TIME. CALL LIGHT IS WITH HIM EDUCATED TO USE FOR ASSISTANCE.
--- NOTE | 2023-02-09 18:23 | NUR ---
RN CLOSING NOTE NEURO AT BEDSIDE. PATIENT IS AWAKE AND ALERT SITTING UP IN BED. PATIENT HAS NO COMPLAINTS AT THIS TIME. EDUCATED TO USE CALL LIGHT FOR ASSISTANCE CALL LIGHT IS WITH HIM. NO OTHER NEEDS AT THIS TIME.
[2023-02-09 21:00] VITALS: BP_SYST 119; PULSE 102; RESP 20; TEMP 98.5; O2SAT 96
[2023-02-10] VITALS: O2SAT 95
[2023-02-10 01:00] VITALS: BP_SYST 129; PULSE 97; RESP 20; TEMP 97.6; O2SAT 96
[2023-02-10] MEDS: NORMAL SALINE 5 ML DISP.SYRIN IVF SCH (06:32)
[2023-02-10 06:34] LABS: BASOPHILS # (AUTO) 0.1 K/uL (0.0-0.2); BASOPHILS % (AUTO) 0.9 % (0.0-2.0); EOSINOPHILS # (AUTO) 0.3 K/uL (0.0-0.4); EOSINOPHILS % (AUTO) 3.8 % (0.0-4.0); HEMATOCRIT 43.3 % (36-54); HEMOGLOBIN 14.2 g/dL (14.0-18.0); LYMPHOCYTES # (AUTO) 1.2 K/uL (1.0-5.5); LYMPHOCYTES % (AUTO) 17.4 % (20.5-51.5); MEAN CORPUSCULAR HEMOGLOBIN 28 pg (27-31); MEAN CORPUSCULAR HGB CONC 33 % (32-36); MEAN CORPUSCULAR VOLUME 86 fL (79.0-98.0); MONOCYTES # (AUTO) 0.7 K/uL (0.0-1.0); MONOCYTES % (AUTO) 10.7 % (1.7-9.3); NEUTROPHILS # (AUTO) 4.6 K/uL (1.8-7.7); NEUTROPHILS % (AUTO) 67.2 % (40.0-70.0); PLATELET COUNT (AUTO) 211 K/uL (130-430); RED BLOOD CELL COUNT(AUTO) 5.05 MIL/uL (4.2-6.2); RED CELL DISTRIBUTION WIDTH 13.9 % (9.0-15.0); WHITE BLOOD COUNT (AUTO) 6.8 K/uL (4.8-10.8)
[2023-02-10 06:44] LABS: ANION GAP 10 (5-15); CHLORIDE 107 mmol/L (98-107); CREATININE 0.77 mg/dL (0.55-1.30); GLUCOSE 105 mg/dL (74-106); PHOSPHORUS 3.9 mg/dL (2.7-4.5); UREA NITROGEN, BLOOD 15 mg/dL (8-21)
[2023-02-10 08:00] VITALS: O2SAT 95; O2SAT 99
[2023-02-10 08:25] VITALS: BP_SYST 126; PULSE 71; RESP 18; TEMP 97.7; O2SAT 95
[2023-02-10] MEDS: DILTIAZEM HCL 180 MG CAP.SR.24H PO SCH (08:37)
[2023-02-10] MEDS: CARVEDILOL 6.25 MG TABLET (COREG) PO SCH (08:37)
[2023-02-10] MEDS: FUROSEMIDE 20 MG TABLET PO SCH (08:38)
[2023-02-10] MEDS: TOPIRAMATE 25 MG TABLET(TOPAMAX) PO SCH (08:38)
[2023-02-10] MEDS: APIXABAN 2.5 MG TABLET PO SCH (08:39)
[2023-02-10] MEDS ORDERED: ATORVASTATIN 20 MG TABLET PO ONE (10:15)
[2023-02-10 10:39] LABS: FREE T4 (FREE THYROXINE) 1.6 ng/dL (0.6-1.6)
[2023-02-10] MEDS: methIMAzole 5 MG TABLET PO SCH (10:49)
[2023-02-10] MEDS ORDERED: LIP20 PO (11:19)
[2023-02-10 12:30] VITALS: BP_SYST 120; PULSE 85; RESP 18; TEMP 97.7; O2SAT 99
--- NOTE | 2023-02-10 14:21 | NUR ---
No complaints this shift,v/s stable ,tolerating diet. Patient given medication reconciliation form and D/C instructions. Exit Care provided. Patient verbalized understanding. MD discussed with patient the results and treatment provided. Ambulatory with steady gait for discharge to home. Patient in stable condition, ID band removed. IV catheter removed, intact and dressing applied, no active bleeding. Patient educated on pain management. All belongings sent with patient.Discharged to by personal car at 1425.
[2023-02-11] MEDS ORDERED: ATORVASTATIN 20 MG TABLET PO SCH (09:00)
== END 2023-02-10 14:25 | disposition home health service (06) | DRG 309 ==
LOC: SED 21:32 → STU 02-09 01:05
PROVIDERS: ADMIT Preventive Medicine Preventive Medicine/Occupational Environmental Medicine; ATTEND Preventive Medicine Preventive Medicine/Occupational Environmental Medicine
DX: I48.91 Unspecified atrial fibrillation (principal); I50.32 Chronic diastolic (congestive) heart failure; E03.9 Hypothyroidism, unspecified; E78.5 Hyperlipidemia, unspecified; R73.9 Hyperglycemia, unspecified; I11.0 Hypertensive heart disease with heart failure; I65.23 Occlusion and stenosis of bilateral carotid arteries
CPT/HCPCS: 36415; 71045; 80048; 80053; 80061; 83690; 83735; 83880; 84100; 84439; 84443; 84484; 85025; 85379; 87081; 93005; 93880; 93923; 93970; 93971; 97110-GP; 97116-GP; 97530-GP; 99281; G0378; J3490